=== PATIENT | female | born 1970 | race Caucasian/White ===

== ENCOUNTER 2022-09-29 12:45 | Emergency (ER) | payer SELFPAY ==
--- NOTE | 2022-09-29 13:26 | XRAY Report ---
PROCEDURE: Foot 3 View RT INDICATIONS: Trauma TECHNIQUE: 3 views of the foot were acquired. COMPARISON: FINDINGS: Bones: Moderately distracted fracture of the distal phalangeal tuft of the great toe. No dislocation. Mild first MTP arthrosis. Small bone fragment, age indeterminate, as seen adjacent to the second toe DIP. Soft tissues: Soft tissue swelling. No suspicious calcifications. Plantar enthesopathy. IMPRESSION: Moderately distracted fracture of the distal phalangeal tuft of the great toe. Correlate clinically f or nailbed injury. Reviewed by: Brian Disla MD on 09/29/2022 1:25 PM PST Approved by: Brian Disla MD on 09/29/2022 1:25 PM PST Station ID: [id number]
[2022-09-29] MEDS ORDERED: HYDROcod/ACETAM 5/325 MG TABLET PO STA (16:26)
[2022-09-29] MEDS ORDERED: SULFAMETH/TRIMETH DS 800/160 MG TABLET PO STA (16:27)
--- NOTE | 2022-09-29 16:30 | ED Physician Documentation ---
PD HPI LOWER EXT INJURY - Stated complaint Stated Complaint: RT TOE INJ - Chief complaint Chief Complaint: Ext Problem - History obtained from History obtained from: Patient - Additional information Additional information: The patient comes to the emergency department chief complaint of right great toe pain after dropping a propane tank on her toe approximately 24 hours ago. The patient states that she has been bleeding and throbbing since and that is why she has come here. The patient states she lives in [facility] and is here visiting her boyfriend in [place]. She is up-to-date on tetanus. She denies any other injuries or complaints. She has been ambulatory but it hurts to walk on it. Review of Systems Ten Systems: 10 systems reviewed and negative Constitutional: reports: Reviewed and negative Eyes: reports: Reviewed and negative Ears: reports: Reviewed and negative Nose: reports: Reviewed and negative Throat: reports: Reviewed and negative Cardiac: reports: Reviewed and negative Respiratory: reports: Reviewed and negative GI: reports: Reviewed and negative : reports: Reviewed and negative Skin: reports: Reviewed and negative Musculoskeletal: reports: Extremity pain, Pain with weight bearing Neurologic: reports: Reviewed and negative Psychiatric: reports: Reviewed and negative Endocrine: reports: Reviewed and negative Immunocompromised: reports: Reviewed and negative PD PAST MEDICAL HISTORY - Present Medications Home Medications: Ambulatory Orders Medication Instructions Recorded Confirmed HYDROcod/ACETAM 5/325 [[place] 5/325] 1 - 2 tablet PO Q6H PRN #14 tablet 09/29/22 Sulfamethox/Trimeth 800/160 1 each PO BID #14 tablet 09/29/22 [Bactrim Ds 800/160] - Allergies Allergies/Adverse Reactions: Allergies Allergy/AdvReac Type Severity Reaction Status Date / Time No Known Drug Allergies Allergy Verified 09/29/22 12:54 PD ED PE NORMAL - Vitals Vital signs reviewed: Yes - General General: Alert and oriented X 3, No acute distress, Well developed/nourished - HEENT HEENT: Atraumatic, PERRL, EOMI, Moist mucous membranes - Neck Neck: Supple, no meningeal sign - Cardiac Cardiac: Strong equal pulses - Respiratory Respiratory: No respiratory distress - Derm Derm: Warm and dry, Other (Contusion over dorsum of right great toe and medial foot. Edema especially surrounding the nail and distalmost aspect of the right great toe. Superficial laceration of the toe distal to nail. No approximation of skin edges, secondary to edema) - Extremities Extremities: No deformity, Other (Edema, moderate, with contusion, distal right great toe.) - Neuro Neuro: Alert and oriented X 3 - Psych Psych: Normal mood, Normal affect Results - Vitals Vitals: Vital Signs - 24 hr 09/29/22 09/29/22 12:54 17:03 Temperature 36.5 C 37.4 C Heart Rate 86 93 Respiratory 16 18 Rate Blood Pressure 140/80 H 121/84 H O2 Saturation 96 99 Oxygen O2 Source Room air - Rads (name of study) Right foot x-ray Radiology: Final report received, EMP read indepedently, See rad report (Tuft fracture right great toe) PD MEDICAL DECISION MAKING - ED course Complexity details: reviewed results, re-evaluated patient, considered differential, d/w patient ED course: The patient was treated with antibiotics for her open right great toe fracture and started on medication for pain as well. She has been given prescriptions for the same. I have also given her a pair of crutches. We have discussed symptomatic management at home, the need for follow-up, and the usual indications for return. Departure - Departure Disposition: 01 Home, Self Care Clinical Impression: Open fracture of right great toe Qualifiers: Encounter type: initial encounter Phalanx: distal Fracture alignment: nondisplaced Qualified Code(s): S92.424B - Nondisplaced fracture of distal phalanx of right great toe, initial encounter for open fracture Condition: Stable Instructions: ED Crutch Walking, ED Fx Foot Prescriptions: Sulfamethox/Trimeth 800/160 [Bactrim Ds 800/160] 1 each PO BID #14 tablet HYDROcod/ACETAM 5/325 [[place] 5/325] 1 - 2 tablet PO Q6H PRN #14 tablet PRN Reason: Pain Comments: Your prescriptions have been electronically transmitted to the [facility] pharmacy in [place]. Please take the antibiotics as directed until the course is complete. You should use the crutches and the cast shoe until you are foot is feeling better. Please follow-up with your primary doctor as needed.
[2022-09-29 17:03] VITALS: BP 121/84
== END 2022-09-29 17:09 | disposition home or self-care (01) ==
LOC: ED 12:45
DX: S92.424B Nondisplaced fracture of distal phalanx of right great toe, initial encounter for open fracture (principal); X58.XXXA Exposure to other specified factors, initial encounter
CPT/HCPCS: 73630; 99282; 99283; A9270